=== PATIENT | female | born 1990 | race Caucasian/White ===

== ENCOUNTER 2017-08-22 22:20 | Emergency (ER) | payer BC, OTHER ==
[2017-08-23] MEDS: HYDROCODONE/APAP (5/325) TAB PO (02:50)
== END 2017-08-23 05:06 | disposition home or self-care (01) ==
LOC: FTE 22:20
DX: M25.562 Pain in left knee (principal)
CPT/HCPCS: 29505; 73562; 99284-25

== ENCOUNTER → 2017-09-16 | Outpatient (CLI) | payer BC | END | disposition home or self-care (01) | LOC: HKI 10:04 | DX: S83.512D Sprain of anterior cruciate ligament of left knee, subsequent encounter (principal); X58.XXXD Exposure to other specified factors, subsequent encounter | CPT/HCPCS: 73564; 73564-LT ==

== ENCOUNTER 2017-12-05 05:27 | Day surgery (SDC) | payer BC ==
[2017-12-05] MEDS ORDERED: LIDOCAINE 2% (SDV) 5 ML INJ (06:20)
[2017-12-05] MEDS ORDERED: GLYCOPYRROLATE 0.4 MG INJ (06:20)
[2017-12-05] MEDS ORDERED: MIDAZOLAM 1 MG/ML 2 ML INJ (06:20)
[2017-12-05] MEDS ORDERED: PROPOFOL 20 ML (06:20)
[2017-12-05] MEDS ORDERED: ROCURONIUM 50 MG INJ (06:20)
[2017-12-05] MEDS ORDERED: FENTAnyl 50 MCG/ML VIAL ×2 (06:20→07:00)
[2017-12-05] MEDS ORDERED: NEOSTIGMINE 3 MG/3 ML SYRINGE (06:20)
[2017-12-05] MEDS ORDERED: ONDANSETRON 4 MG INJ (06:21)
[2017-12-05] MEDS ORDERED: DEXAMETHASONE 4 MG/ML 1 ML INJ (06:21)
[2017-12-05] MEDS ORDERED: HYDROmorphONE 1 MG/5 ML IV SYRINGE IV (06:30)
[2017-12-05] MEDS ORDERED: ATROPINE 1 MG/10 ML SYRINGE IV (06:30)
[2017-12-05] MEDS ORDERED: DIPHENHYDRAMINE 50 MG INJ IV (06:30)
[2017-12-05] MEDS ORDERED: OXYCODONE/ACETAMINOPHEN (5/325) TAB PO ×2 (06:30→08:00)
[2017-12-05] MEDS ORDERED: FENTAnyl 50 MCG/ML VIAL IV ×2 (06:30)
[2017-12-05] MEDS ORDERED: LABETALOL HCL 20MG INJ IV (06:30)
[2017-12-05] MEDS ORDERED: EPHEDrine SULFATE 50 MG/5 ML SYG IV (06:30)
[2017-12-05] MEDS ORDERED: MIDAZOLAM 1 MG/ML 2 ML INJ IV (06:30)
[2017-12-05] MEDS ORDERED: ROPIVACAINE 0.5 % 30 ML VIAL ×2 (06:30→07:00)
[2017-12-05] MEDS ORDERED: hydrALAzine 20 MG INJ IV (06:30)
[2017-12-05] MEDS ORDERED: morphine (1 MG/ML) 10ML SYRINGE IV ×3 (06:30)
[2017-12-05] MEDS ORDERED: EPINEPHrine 1 MG INJ (07:00)
[2017-12-05] MEDS ORDERED: POLYMYXIN/BACITRACIN 1L IRRIG (07:00)
[2017-12-05] MEDS ORDERED: CEFAZOLIN 1 GM INJ (07:00)
[2017-12-05] MEDS ORDERED: LIDOCAINE 1% (MPF) 30 ML INJ (07:00)
[2017-12-05] MEDS ORDERED: NEOMYC/POLYMYX/BACIT 30 GM OINT (07:00)
[2017-12-05] MEDS ORDERED: POVIDONE IODINE 10% 28.4 GM OINT (07:00)
[2017-12-05] MEDS ORDERED: morphine 2 MG INJ IV (08:00)
[2017-12-05] MEDS ORDERED: LABETALOL HCL 20MG INJ (08:08)
[2017-12-05] MEDS ORDERED: hydrALAzine 20 MG INJ (08:36)
[2017-12-05] MEDS: POLYMYXIN/BACITRACIN 1L IRRIG IRR (09:27)
[2017-12-05] MEDS ORDERED: SUGAMMADEX SODIUM 200 MG/2 ML VIAL IV (11:34)
[2017-12-05] MEDS ORDERED: PHENYLephrine (100 MCG/ML) 5ML SYG (11:36)
[2017-12-05] MEDS: MEPERIDINE 25 MG INJ IV (12:07)
[2017-12-05] MEDS: HYDROmorphONE 1 MG/5 ML IV SYRINGE IV ×2 (12:07→12:18)
[2017-12-05] MEDS: ONDANSETRON 4 MG INJ IV (12:08)
[2017-12-05] MEDS: KETOROLAC 30 MG INJ IV (12:20)
[2017-12-05] MEDS: OXYCODONE/ACETAMINOPHEN (5/325) TAB PO (12:35)
== END 2017-12-05 13:58 | disposition home or self-care (01) ==
LOC: SDS 05:27
DX: S83.212D Bucket-handle tear of medial meniscus, current injury, left knee, subsequent encounter (principal); X58.XXXD Exposure to other specified factors, subsequent encounter; S83.512D Sprain of anterior cruciate ligament of left knee, subsequent encounter
CPT/HCPCS: 29881; 82306; 84703